=== PATIENT | female | born 1975 | race Caucasian/White ===

== ENCOUNTER → 2020-04-18 | Outpatient (CLI) | payer OTHER ==
[~2020-04-18] MED LIST: ALLE10TA32 PO; AMOX875T2 PO; FLON27.5 NARES; FLUC100T PO; PRED10TA2 PO
[2020-04-18 11:01] LABS: BASO % 0.4 % (0.0-1.0); HEMATOCRIT 39.6 % (36.0-47.0); HEMOGLOBIN 12.9 g/dl (12.0-15.5); LYMPH # 3.7 10^3/uL (1.5-5.0); LYMPH % 36.4 % (24.0-44.0); MEAN CORPUSCULAR HEMOGLOBIN 29.5 pg (27.0-33.0); MEAN CORPUSCULAR HGB CONC 32.6 g/dl (32.0-36.5); MEAN CORPUSCULAR VOLUME 90.4 fl (80.0-96.0); MONO # 0.6 10^3/uL (0.0-0.8); MONO % 5.7 % (0.0-5.0); NEUTROPHILS # 5.8 10^3/uL (1.5-8.5); NEUTROPHILS % 57.2 % (36.0-66.0); PLATELET COUNT, AUTOMATED 325 10^3/uL (150-450); RED BLOOD COUNT 4.38 10^6/uL (4.00-5.40); WHITE BLOOD COUNT 10.1 10^3/uL (4.0-10.0)
[2020-04-18 11:32] LABS: ERYTHROCYTE SEDIMENTATION RATE 24 mm/hr (0-20)
[2020-04-20 10:09] LABS: ANTI DS-DNA AB Negative (Negative)
== END ==
LOC: M LAB 10:13
PROVIDERS: ATTEND Specialist
DX: H65.01 Acute serous otitis media, right ear (principal); H66.002 Acute suppurative otitis media without spontaneous rupture of ear drum, left ear

== ENCOUNTER → 2020-04-23 | Outpatient (CLI) | payer OTHER | LOC: M LABSMTC 09:48 | PROVIDERS: ATTEND Anesthesiology | DX: Z03.818 Encounter for observation for suspected exposure to other biological agents ruled out (principal); Z11.59 Encounter for screening for other viral diseases | CPT/HCPCS: C9803; U0003 ==

== ENCOUNTER 2020-04-26 07:06 | Day surgery (SDC) | payer OTHER ==
[~2020-04-26] VITALS: Ht 167.6 cm; Wt 73.5 kg
[~2020-04-26 07:06] MED LIST changes: +LR 1,000 ML IV ONE
[2020-04-26] MEDS ORDERED: MIDAZOLAM INJ 2MG/2ML VIAL (J2250 PER 1MG) As Ordered ONE (07:12)
[2020-04-26] MEDS ORDERED: ONDANSETRON 4MG/2ML VIAL As Ordered ONE (07:12)
[2020-04-26] MEDS ORDERED: propofoL 200 MG/20 ML VIAL As Ordered ONE (07:12)
[2020-04-26] MEDS ORDERED: LIDOCAINE 2% 100MG/5ML SDV (FOR ANES.) As Ordered ONE (07:12)
[2020-04-26] MEDS ORDERED: fentaNYL 100 MCG/2 ML INJECTION (J3010) As Ordered ONE (07:12)
[2020-04-26] MEDS ORDERED: dexameTHASONE 4 MG/ML 1ML VIAL (J1100 PER 1MG) As Ordered ONE (07:12)
[2020-04-26] MEDS ORDERED: CIPRODEX OTIC SUSP 7.5ML As Ordered ONE (07:55)
[2020-04-26] MEDS ORDERED: EPINEPHrine 1MG/ML INJ 30ML MD-VIAL As Ordered ONE (08:19)
[2020-04-26] MEDS ORDERED: LR 1,000 ML IV SCH (09:00)
[2020-04-26] MEDS ORDERED: oxyCODONE 5MG TAB PO PRN (09:00)
[2020-04-26] MEDS ORDERED: ONDANSETRON 4MG/2ML VIAL IV PRN (09:00)
[2020-04-26] MEDS ORDERED: fentaNYL 100 MCG/2 ML INJECTION (J3010) IV PRN (09:00)
[2020-04-26 09:51] VITALS: BP 110/68
--- NOTE | 2020-04-30 08:39 | RO ---
DATE OF PROCEDURE: 04/26/2020 PREOPERATIVE DIAGNOSIS: Conductive hearing loss secondary to chronic otitis media. POSTOPERATIVE DIAGNOSIS: Conductive hearing loss secondary to chronic otitis media. PROCEDURE: Examination of ears under anesthesia, bilateral myringotomy tubes. SURGEON: Geoff Ballesteros MD [employer]IN RO[employer]ING MACHINE OPERATOR: ANESTHESIA: INDICATIONS: This is a 44-year-old who has been followed now for almost 6 weeks on antibiotics and steroids to try to clear up conductive hearing loss thought to be from middle ear fluid. She did not respond to the medications, and she is brought to the operating room for placement of a large-bore myringotomy tube. An attempt had been made in the office to put an office tube in; however, the diameters were such that discharge from the middle ear through the tube clogged it up shortly and it became extruded. DESCRIPTION OF PROCEDURE: Satisfactory mask anesthesia administered. The left ear examined, cleaned under the microscope. The eardrum appeared to be moderately inflamed. It seemed to be retracted anteriorly, and the posterior segment of the eardrum seemed to be somewhat ballooning outwards. An anterior inferior myringotomy was made. A small amount of serous fluid suctioned. Ciprodex drops used to irrigate, and a beveled bobbin tube inserted into position. Ciprodex drops used to fill the ear canal. Next, the right ear was examined, cleaned under the microscope. This was the more symptomatic ear and seemed to be the more problematic ear. On examination, there was a significant anterior canal hump that prohibited great visualization of the anterior segment of tympanic membrane. The interesting thing was the posterior segment of tympanic membrane was almost bullous and seemed to be expanding laterally, which obstructed the view of the anterior portion of the tympanic membrane. In order to better visualize the anterior tympanic membrane, a small incision was made posteriorly to evacuate the fluid; and immediately, a great deal of serous fluid emerged from the middle ear, but it also appeared that the tympanic membrane was quite vascular and bled from its edges. At this point, adrenaline pledgets were placed on the tympanic membrane for a few minutes to settle this down. After several attempts, finally the visualization of the anterior segment of the tympanic membrane was better, but an anterior inferior or central inferior incision had to be made because access to the far anterior portion of tympanic membrane was not possible between the canal hump and the edematous bulging bullous tympanic membrane. Once the small incision was made, inspection through the myringotomy to middle ear seemed to show some inflammatory-type changes in the middle ear, but a full space in the middle ear was not visualized. A beveled bobbin tube was seated in place satisfactorily. Ciprodex drops were then used to fill the tube and ear canal. She tolerated this procedure well, was sent to recovery in satisfactory condition. She will be sent home using the drops twice a day, and she will be seen back in the office in 1 week.
== END 2020-04-26 10:14 | disposition home or self-care (01) ==
LOC: M SDC 07:06
PROVIDERS: ATTEND Specialist
DX: H65.23 Chronic serous otitis media, bilateral (principal); H90.0 Conductive hearing loss, bilateral; Z86.718 Personal history of other venous thrombosis and embolism; Z79.899 Other long term (current) drug therapy; Z79.52 Long term (current) use of systemic steroids
CPT/HCPCS: 69436; 81025; J1100; J2250; J2405; J3010

== ENCOUNTER → 2020-04-28 | Outpatient (CLI) | payer OTHER ==
[~2020-04-28] MED LIST changes: -LR 1,000 ML IV ONE
--- NOTE | 2020-04-28 14:54 | REP ---
CT IACs / temporal bones and facial bones: 04/28/2020. Indication: Ear pain. Facial pain. Technique: Axial images of the facial bones and IACs / temporal bones were performed with sagittal and coronal reconstructions provided. Comparison: None. Findings: Right-sided mastoid effusion is present without coalescence. There is abnormal soft tissue within the right middle ear cavity without ossicular abnormalities. No periarticular soft tissue or intracranial associated abnormalities are present. The inner ear anatomy and IACs are unremarkable bilaterally. No abnormal cerebellopontine/medullary angle mass or additional abnormalities are present. The nasopharyngeal soft tissues appear normal. There is no significant paranasal sinus periosteal mucosal thickening. There is mild rightward deviation of the nasal septum. The visualized ocular, intraorbital and intracranial anatomy is unremarkable as well. Impression: Findings most consistent with right-sided otitis media with associated mastoid effusion. However, clinical correlation is required. There is no evidence of mastoiditis. Electronically Signed by Reji Bowling DO 04/28/2020 02:46 P
== END ==
LOC: M RAD 11:58
PROVIDERS: ATTEND Specialist
DX: H65.02 Acute serous otitis media, left ear (principal)